=== PATIENT | female | born 1970 | race African-American/Black ===

== ENCOUNTER 2016-10-26 22:22 | Emergency (ER) | payer MEDICAID ==
[~2016-10-26] VITALS: Ht 162.6 cm; Wt 99.8 kg
[2016-10-26 22:36] VITALS: BP 142/87
[2016-10-27] MEDS ORDERED: DEXAMETHASONE SOD PHOSPHATE 10 MG/ML VIAL ONE (01:48)
[2016-10-27] MEDS ORDERED: ACETAMINOPHEN ES 500 MG TABLET ONE (01:49)
[2016-10-27] MEDS ORDERED: ACETAMINOPHEN 325 MG TABLET PO ONE (02:00)
[2016-10-27] MEDS ORDERED: DEXAMETHASONE SOD PHOSPHATE 4 MG/ML VIAL IV ONE (02:00)
== END 2016-10-27 03:50 | disposition home or self-care (01) ==
LOC: ER 22:22
DX: J02.8 Acute pharyngitis due to other specified organisms (principal); J06.9 Acute upper respiratory infection, unspecified; I10 Essential (primary) hypertension; E11.9 Type 2 diabetes mellitus without complications; Z90.710 Acquired absence of both cervix and uterus; Z98.890 Other specified postprocedural states
CPT/HCPCS: 82962; 99283; A4606; J1100; Z7610